=== PATIENT | female | born 1995 | race Caucasian/White ===

== ENCOUNTER 2021-06-07 17:27 | Emergency (ER) | payer MEDICAID ==
[~2021-06-07] VITALS: Ht 167.6 cm; Wt 59.0 kg
[2021-06-07 17:35] VITALS: BP_SYST 153
--- NOTE | 2021-06-07 17:40 | NUR ---
Patient to ER bed 06 to gown for evaluation. Side rails up.
--- NOTE | 2021-06-07 17:45 | NUR ---
Patient from home complaining of bright red blood in stool x 2 days. Patient reports that she has diarrhea since yesterday. Denies any nausea, vomiting, or abdominal pain. Denies any pain
--- NOTE | 2021-06-07 17:56 | NUR ---
ER at bedside examining patient.
[2021-06-07 18:29] LABS: BASOPHILS % (AUTO) 0.7 % (0.0-2.0); EOSINOPHILS # (AUTO) 0.1 K/uL (0.0-0.4); EOSINOPHILS % (AUTO) 1.9 % (0.0-4.0); HEMATOCRIT 37.6 % (36-48); HEMOGLOBIN 12.7 g/dL (12.0-16.0); LYMPHOCYTES % (AUTO) 29.1 % (20.5-51.5); MEAN CORPUSCULAR HEMOGLOBIN 32 pg (27-31); MEAN CORPUSCULAR HGB CONC 34 % (32-36); MEAN CORPUSCULAR VOLUME 94 fL (79.0-98.0); MONOCYTES # (AUTO) 0.7 K/uL (0.0-1.0); MONOCYTES % (AUTO) 9.9 % (1.7-9.3); NEUTROPHILS % (AUTO) 58.4 % (40.0-70.0); PLATELET COUNT (AUTO) 195 K/uL (130-430); RED BLOOD CELL COUNT(AUTO) 4.01 MIL/uL (4.2-6.2); RED CELL DISTRIBUTION WIDTH 12.9 % (9.0-15.0); WHITE BLOOD COUNT (AUTO) 6.9 K/uL (4.8-10.8)
--- NOTE | 2021-06-07 18:29 | NUR ---
Rectal exam performed by Dr. Otero with BERNARDINO Lujan at bedside during procedure. Patient tolerated well.
[2021-06-07 18:52] LABS: CREATININE 0.85 mg/dL (0.55-1.30); POTASSIUM 3.4 mmol/L (3.5-5.1)
[2021-06-07 19:03] LABS: ALBUMIN 3.5 g/dL (3.4-4.8); TOTAL BILIRUBIN 0.5 mg/dL (0.0-1.0)
[2021-06-07 20:20] VITALS: BP_SYST 153
== END 2021-06-07 20:20 | disposition home or self-care (01) ==
LOC: SED 17:27
DX: K92.1 Melena (principal); Z88.5 Allergy status to narcotic agent
CPT/HCPCS: 36415; 80053; 81025; 84702; 85025; 86886; 86900; 86901; 99283